=== PATIENT | male | born 1980 | race African-American/Black ===

== ENCOUNTER 2017-05-07 09:01 | Emergency (ER) | payer OTHER ==
[2017-05-09 22:15] LABS: CHLAMYDIA TRACHOMATIS, NAA Positive (Negative)
== END 2017-05-07 11:47 | disposition home or self-care (01) ==
LOC: D.ER 09:01
PROVIDERS: Nurse Practitioner Family
DX: R36.9 Urethral discharge, unspecified (principal); R30.0 Dysuria